=== PATIENT | female | born 1980 | race Caucasian/White ===

== ENCOUNTER 2020-12-14 10:27 | Inpatient (IN) | payer MEDICAID, SELFPAY ==
[2020-12-14] VITALS (23 sets, daily range): BP systolic 114–149; BP diastolic 67–91; PULSE 79–101; RESP 17; TEMP 36.3–37.1; BMI 32.1
[2020-12-14] MEDS: Lactated Ringers 1,000 ML 50 ML IV (11:29)
[2020-12-14 12:01] LABS: Absolute Lymphocyte Count 1.38 X10^3/uL (0.83-4.51); Absolute Neutrophil Count 4.6 X10^3/uL (2.0-7.7); Basophil# 0.01 X10^3/uL; Basophil% 0.2 % (0-1); Eosinophil# 0.03 X10^3/uL; Eosinophils% 0.5 % (0-5); Hematocrit 36.6 % (37-47); Hemoglobin 12.5 g/dL (12.0-15.0); Lymphocyte # 1.38 X10^3/ul (0.83-4.51); Lymphocyte % 21.6 % (19-41); Mean Corp Hgb Conc 34.2 g/dL (32-36); Mean Corpuscular Hgb 31.8 pg (27.0-32.0); Mean Corpuscular Volume 93.1 fL (81-99); Mean Platelet Vol. 10.3 fl (6.2-12.0); Monocyte# 0.37 X10^3/uL; Monocyte% 5.8 % (0-10); NRBC Flagged by Analyzer 0 % (0-5); Neutrophil # 4.58 X10^3/uL (2.7-7.7); Neutrophil % 71.6 % (47-70); Platelet Count 171 K/mm3 (150-450); RBC Distribution Width CV 13.1 % (11.6-14.6); RBC Distribution Width SD 44.8 fl (35.1-43.9); Red Blood Count 3.93 M/mm3 (4.2-5.4); White Blood Count 6.4 K/mm3 (4.4-11.0)
[2020-12-14 12:12] LABS: Bacteria 0 SEEN /hpf (None Seen); Mucous, Urine 0 SEEN /hpf (<or=2+); White Blood Cells 0 SEEN /hpf (0-5)
[2020-12-14 12:25] LABS: Color, Urine Yellow (Yellow); Glucose, Dipstick Normal (Normal); Ketone-Dipstick Negative (Negative); Leukocyte Esterase-Dipstick Negative /ul (Negative); Nitrite-Dipstick Negative (Negative); Occult Blood-Urine 25 /ul (Negative); Protein-Dipstick Negative (Negative); Urine Bilirubin Dipstick Negative (Negative); Urine Clarity Clear (Clear); Urine Urobilinogen Normal (Normal); Urine pH 6.5 (5.0 - 8.0)
[2020-12-14] MEDS: Oxytocin 30 units/NS 500 ml 30 UNITS/500 ML IV.SOLN IV (12:29)
[2020-12-14 12:35] LABS: Amphetamine Urine VISTA NEGATIVE (<1000 ng/mL); Barbiturate Urine VISTA NEGATIVE (< 200 ng/mL); Benzodiazepine Urine VISTA NEGATIVE (< 200 ng/mL); Cocaine Urine VISTA NEGATIVE (< 300 ng/mL); Ecstacy Urine VISTA NEGATIVE (< 500 ng/mL); Methadone Urine VISTA NEGATIVE (< 300 ng/mL); PCP Urine VISTA NEGATIVE (< 25 ng/mL); THC Urine VISTA NEGATIVE (< 50 ng/mL); Vista UDS pH Range 6
[2020-12-14 12:46] LABS: Red Blood Cells-Urine 0-5 SEEN /hpf (0-5); Squamous Epithelial Cells - UA 0-5 SEEN /hpf (5-10)
[2020-12-14 12:49] LABS: Rubella IgG Reactive (Nonreactive); Syphilis Antibodies Non-reactive
[2020-12-14 13:08] LABS: HIV - WCH Non-Reactive (Nonreactive); Hepatitis B Surface Antigen Non-Reactive (Nonreactive); Hepatitis C Antibody Non-Reactive (Nonreactive)
[2020-12-14 14:43] LABS: Group B Strep DNA By PCR Negative (Negative); Internal Control PASS; Probe Check PASS; Specimen Processing Control PASS
[2020-12-14 14:43] LABS: Chlamydia Trachomatis by PCR Negative (Negative); Neisserai gonorrhoeae by PCR Negative (Negative); Probe Check PASS; Sample Adequacy Control PASS; Specimen Processing Control PASS
[2020-12-14] MEDS: fentaNYL 100 MCG/2 ML Ampul IV (17:43)
--- NOTE | 2020-12-14 18:20 | HP.PCM.OB_ITS ---
HPI - General General Date of Admission: 12/14/20 HPI Narrative PAUL MENDOZA, is a 40 F who presents with PROM 20 hours ago. She has been receiving care from the mechanical facilities technician Elisabet Guajardo and has had an uncomplicated . She denies any vaginal bleeding and admits clear fluid since yesterday. She denies any fever or abdominal pain. Contractions are few and far between. She is feeling good movement. Maternal Data Information ARLINE Calculator Estimated Delivery Date Method Current WG Current Estimate 12/13/20 Manual 40w 1d PFSH PFSH Home Medications [id number] [] 1 tab PO DAILY 12/14/20 [History Last Taken Unknown] Allergy/AdvReac Type Severity Reaction Status Date / Time No Known Allergies Allergy Verified 12/14/20 13:02 Social History Smoking Status: Former smoker History 4 Elective abortions Hx Para 2 Spontaneous abortions Hx # Term Pregnancies 2 Ectopic pregnancies Hx # Pregnancies Multiple births # of living children 2 Addt'l History: 2 previous NST FHR Rate Baby A Baseline: 130 Variability:: Moderate Accelerations:: 15 x 15 Decelerations:: None NST Reactive:: Yes FHR Category:: Category I Uterine Activity:: irregular ROS Constitutional Constitutional: Reports systems reviewed and no addt'l complaints, except as documented Eyes Eyes: Denies change in vision ENT HEENT: Reports systems reviewed and no addt'l complaints, except as documented; Denies headache(s) Cardiovascular Cardiovascular: Reports systems reviewed and no addt'l complaints, except as documented; Denies chest pain or dyspnea Respiratory/Chest Respiratory/Chest: Reports systems reviewed and no addt'l complaints, except as documented Gastrointestinal Gastrointestinal: Reports systems reviewed and no addt'l complaints, except as documented; Denies abdominal pain Genitourinary Genitourinary: Reports systems reviewed and no addt'l complaints, except as documented, contractions Details: present (irregular) and movement Details: present; Denies dysuria or genital lesions Musculoskeletal Musculoskeletal: Reports systems reviewed and no addt'l complaints, except as documented Neurologic Neurologic: Reports systems reviewed and no addt'l complaints, except as documented Endocrine Endocrinology: Reports systems reviewed and no addt'l complaints, except as documented Vital Signs Vital Signs Vital Signs: 12/14/20 10:48 12/14/20 12:03 12/14/20 12:20 Temperature 98.0 F Temperature Source Temporal Pulse Rate 101 H 90 86 Blood Pressure 131/87 H 149/91 H 141/88 H BP Systolic 131 149 141 BP Diastolic 87 91 88 12/14/20 12:40 12/14/20 13:25 12/14/20 13:27 Temperature 98.1 F 98.4 F Temperature Source Pulse Rate 93 Blood Pressure 122/81 H BP Systolic 122 BP Diastolic 81 12/14/20 14:10 12/14/20 15:09 12/14/20 16:18 Temperature 98.8 F 97.9 F 98.4 F Temperature Source Temporal Pulse Rate 85 86 84 Blood Pressure 126/76 H 127/83 H 132/75 H BP Systolic 126 127 132 BP Diastolic 76 83 75 12/14/20 17:47 Temperature 97.3 F L Temperature Source Temporal Pulse Rate 79 Blood Pressure 139/73 H BP Systolic 139 BP Diastolic 73 Weight Weight: 199 lb 8 oz Body Mass Index (BMI) 32.1 Physical Exam Const alert, oriented x3, no apparent distress and healthy appearing HEENT normocephalic and moist oral mucous membranes Head and Scalp: atraumatic Neck full ROM, no lymphadenopathy, supple and thyroid normal General: trachea midline Lymph Lymphatic: no lymphadenopathy noted Chest inspection of chest normal Resp normal respiratory effort Cardio regular rate GI normal to inspection, nondistended, normoactive bowel sounds, soft to palpation and non-tender Inspection: gravid external exam normal Manual OB Exam: estimated gestational size appropriate, presentation cephalic, dilated, effaced and station Extremity normal to inspection General Extremity: Negative for edema Skin no rashes or lesions noted Neuro no focal motor deficits and deep tendon reflexes 2+ bilaterally Motor Exam: strength 5/5 throughout and clonus absent Psych mental status grossly normal Labs Labs Labs: Blood Type O POSITIVE Antibody Screen NEGATIVE Hct 36.6 % (37-47) L Hgb 12.5 g/dL (12.0-15.0) Syphilis Total Ab Non-reactive Rubella IgG Antibody Reactive (Nonreactive) Hep Bs Antigen Non-Reactive (Nonreactive) HIV 1&2 Antibody Non-Reactive (Nonreactive) C.trachomatis DNA (PCR) Negative (Negative) Group B Strep DNA Negative (Negative) Assessment & Plan (1) PROM (premature rupture of membranes): PLAN: routine labs ordered, start ampicillin for PROM and unknown GBS status. start pitocin.
--- NOTE | 2020-12-14 18:23 | EX.PCM.OBRPT ---
Assessment & Plan (1) PROM (premature rupture of membranes): (2) Vaginal delivery: COMMENT: 40 SM girl Phyllis kirkpatrick patient Maternal Data Information ARLINE Calculator Estimated Delivery Date Method Current WG Current Estimate 12/13/20 Manual 40w 3d Vaginal Delivery Maternal Presentation Type of Induction: Pitocin Medical Reason for Induction: Premature Rupture of Membranes Operative Information Date of Procedure: 12/14/20 Pre-Operative Diagnosis: PROM Post-Operative Diagnosis: same Surgery / Procedure Performed: Spontaneous Vaginal Delivery Type of Anesthesia: None Special Medications: none Estimated Blood Loss: 100 Fluids Replaced: crystalloid Findings Description of Procedure: Patient began pushing and delivered the head in the ENZO presentation. The head was delivered atraumatically and a loose nuchal cord ?1 was identified and the delivered through without complication. The anterior and posterior shoulders delivered without complication followed by the rest of the infant and the was placed on the maternal abdomen. Delayed cord clamping was employed for approximately 60 seconds. Cord was clamped and cut and gentle traction was applied to the cord and the placenta delivered spontaneously immediately following it was noted to be intact with three-vessel cord. The perineum and vagina were inspected and noted to have no laceration. EBL was 100 cc. Patient and tolerated delivery well. Presentation: ENZO Amniotic Membrane Rupture Type: Artificial Amniotic Fluid Description: Clear Placental Delivery Description: Spontaneous Placenta Disposition: [facility] Cord Vessel Description: 3 Vessels Cord Entanglement: None Infant A Gender: Female Delayed Cord Clamping: Yes Post Vaginal Delivery Medications Given After Delivery: IV Pitocin Episiotomy Description: None Laceration: None Complication Complications: None Procedures Urinary/Genital [id number]: [id number] Vaginal Delivery Only
--- NOTE | 2020-12-14 18:31 | PCM.DC ---
Discharge Instructions Diet Discharge Diet: No restrictions Activity Discharge Activity: Return to Normal Activity, May Not Drive (while taking narcotic pain medications.) and May Shower May resume sexual activity in: 4-6 weeks Dressing / Incision Call your doctor if your incision/area has: Continuous Slow Oozing, Sudden Increased Bleeding, Increased Pain/ Swelling, Increased Redness and Foul Smelling Discharge Follow Up Care Please Follow Up With: Shiloh Olson MD When: Call [phone] to make an appointment with your doctor in 6 weeks. If you had elevated blood pressure or 4th degree laceration, you will need to be seen in 2 weeks. Test Results: Test results from this visit will be discussed in further detail at your follow-up appointment, if applicable. Discharge Plan Admission Admit Date/Time: 12/14/20 10:27 Primary Reason for Your Visit: vaginal delivery Attending Provider: Shiloh Olson Discharge Orders/Prescriptions Prescriptions: No Action 1 mg Tablet 1 tab PO DAILY RF: 0 Referrals / Follow Up: Shiloh Olson MD [STAFF PHYSICIAN] - Disposition Disposition (needs filled in before D/C Order can be placed): Home, Self Care
[2020-12-14] MEDS: Oxytocin 30 units/NS 500 ml 30 UNITS/500 ML IV.SOLN 334 UNITS IV (18:56)
[2020-12-15 04:05] VITALS: BP 118/78; PULSE 85; RESP 17; TEMP 36.3
--- NOTE | 2020-12-15 07:54 | PCM.PN.OB ---
Subjective Subjective Patient doing well without complaints. Tolerating PO. Ambulating and voiding without difficulty. feeding well. Denies chest pain, shortness of breath, calf pain/swelling, fevers, chills, lightheadedness. Objective Data Objective Data Vital Signs: Vital Signs Temp Pulse Resp BP 97.4 F L 85 17 118/78 12/15/20 04:05 12/15/20 04:05 12/15/20 04:05 12/15/20 04:05 Oxygen Delivery Method Room Air Weight: 199 lb 8 oz Body Mass Index (BMI) 32.1 Intake & Output: Intake and Output for Last 24 Hours 12/13/20 12/14/20 12/15/20 23:59 23:59 23:59 Intake Total 1550.61 / 1550.61 Output Total 450 / 450 Balance 1550.61 / 1550.61 -450 / -450 Lab / Micro Data Result Diagrams: 12/14/20 11:30 Labs: Laboratory Results - last 24 hr 12/14/20 12/14/20 12/14/20 11:30 11:30 11:30 WBC 6.4 RBC 3.93 L Hgb 12.5 Hct 36.6 L MCV 93.1 MCH 31.8 MCHC 34.2 RDW Std Deviation 44.8 H RDW Coeff of Keysha 13.1 Plt Count 171 MPV 10.3 Immature Gran % (Auto) 0.300 Neut % (Auto) 71.6 H Lymph % (Auto) 21.6 Esmeralda % (Auto) 5.8 Eos % (Auto) 0.5 Baso % (Auto) 0.2 Absolute Neuts (auto) 4.6 Absolute Lymphs (auto) 1.38 Nucleated RBC % 0 Urine Color Urine Clarity Urine pH Ur Specific [place] Urine Protein Urine Glucose (UA) Urine Ketones Urine Occult Blood Urine Nitrite Urine Bilirubin Urine Urobilinogen Ur Leukocyte Esterase Urine RBC Urine WBC Ur Squamous Epith Cells Urine Bacteria Urine Mucus Urine Opiates Screen Urine Methadone Screen Ur Barbiturates Screen Ur Phencyclidine Scrn Ur Amphetamines Screen U Methamphetamin-MDMA U Benzodiazepines Scrn Urine Cocaine Screen U Cannabinoids Screen Ur Drug Screen Comment Syphilis Total Ab Non-reactive Chlam trachomat DNA PCR Hep Bs Antigen Hepatitis C Antibody HIV 1&2 Antibody N.gonorrhoeae DNA (PCR) Rubella IgG Antibody Reactive Group B Strep DNA Specimen Comment Blood Type O POSITIVE Antibody Screen NEGATIVE 12/14/20 12/14/20 12/14/20 11:30 11:30 12:05 WBC RBC Hgb Hct MCV MCH MCHC RDW Std Deviation RDW Coeff of Keysha Plt Count MPV Immature Gran % (Auto) Neut % (Auto) Lymph % (Auto) Esmeralda % (Auto) Eos % (Auto) Baso % (Auto) Absolute Neuts (auto) Absolute Lymphs (auto) Nucleated RBC % Urine Color Yellow Urine Clarity Clear Urine pH 6.5 Ur Specific [place] 1.010 Urine Protein Negative Urine Glucose (UA) Normal Urine Ketones Negative Urine Occult Blood 25 H Urine Nitrite Negative Urine Bilirubin Negative Urine Urobilinogen Normal Ur Leukocyte Esterase Negative Urine RBC 0-5 SEEN Urine WBC 0 SEEN Ur Squamous Epith Cells 0-5 SEEN Urine Bacteria 0 SEEN Urine Mucus 0 SEEN Urine Opiates Screen Urine Methadone Screen Ur Barbiturates Screen Ur Phencyclidine Scrn Ur Amphetamines Screen U Methamphetamin-MDMA U Benzodiazepines Scrn Urine Cocaine Screen U Cannabinoids Screen Ur Drug Screen Comment Syphilis Total Ab Chlam trachomat DNA PCR Hep Bs Antigen Non-Reactive Hepatitis C Antibody Non-Reactive HIV 1&2 Antibody Non-Reactive N.gonorrhoeae DNA (PCR) Rubella IgG Antibody Group B Strep DNA Negative Specimen Comment Not Reportable Blood Type Antibody Screen 12/14/20 12/14/20 12:05 12:05 WBC RBC Hgb Hct MCV MCH MCHC RDW Std Deviation RDW Coeff of Keysha Plt Count MPV Immature Gran % (Auto) Neut % (Auto) Lymph % (Auto) Esmeralda % (Auto) Eos % (Auto) Baso % (Auto) Absolute Neuts (auto) Absolute Lymphs (auto) Nucleated RBC % Urine Color Urine Clarity Urine pH Ur Specific [place] Urine Protein Urine Glucose (UA) Urine Ketones Urine Occult Blood Urine Nitrite Urine Bilirubin Urine Urobilinogen Ur Leukocyte Esterase Urine RBC Urine WBC Ur Squamous Epith Cells Urine Bacteria Urine Mucus Urine Opiates Screen NEGATIVE Urine Methadone Screen NEGATIVE Ur Barbiturates Screen NEGATIVE Ur Phencyclidine Scrn NEGATIVE Ur Amphetamines Screen NEGATIVE U Methamphetamin-MDMA NEGATIVE U Benzodiazepines Scrn NEGATIVE Urine Cocaine Screen NEGATIVE U Cannabinoids Screen NEGATIVE Ur Drug Screen Comment Syphilis Total Ab Chlam trachomat DNA PCR Negative Hep Bs Antigen Hepatitis C Antibody HIV 1&2 Antibody N.gonorrhoeae DNA (PCR) Negative Rubella IgG Antibody Group B Strep DNA Specimen Comment Blood Type Antibody Screen Micro: Microbiology 12/14/20 15:30 Mucosa - Nose SARS-CoV-2 Antigen (Rapid) - Final Physical Exam Const alert and oriented x3 HEENT normocephalic Eyes PERRL Neck full ROM Resp normal respiratory effort GI soft to palpation GI Narrative: FF below U Assessment & Plan (1) Vaginal delivery: COMMENT: 42 SM girl Phyllis mendez kaya patient PLAN: s/p PPD # 1 1. routine post delivery care 2. breast feeding- support given 3. rh positive 4. rubella immune 5. home today
[2020-12-15 08:48] VITALS: BP 110/79; PULSE 89; RESP 16; TEMP 36.6; O2SAT 97
[2020-12-15 12:22] VITALS: BP 113/76; RESP 16; TEMP 36.3
[2020-12-15] MEDS: Prenatal Vits Tablet 1 TABLET PO (14:52)
[2020-12-15 16:00] VITALS: BP 113/79; PULSE 89; RESP 16; TEMP 36.5
[2020-12-15 20:25] VITALS: BP 121/75; PULSE 80; RESP 16; TEMP 36.2; O2SAT 99
== END 2020-12-15 20:55 | disposition home or self-care (01) | DRG 560 ==
PROVIDERS: Admitting Provider Obstetrics & Gynecology; Visit Provider Obstetrics & Gynecology
DX: O42.02 Full-term premature rupture of membranes, onset of labor within 24 hours of rupture (principal); O69.81X0 Labor and delivery complicated by cord around neck, without compression, not applicable or unspecified; Z3A.40 40 weeks gestation of pregnancy; Z37.0 Single live birth
CPT/HCPCS: 59025; 59050; 80307; 81001; 85025; 86703; 86762; 86780; 86803; 86850; 86900; 86901; 87081; 87340; 87426; 87491; 87591; 87653; 99218; J7120; G0378